=== PATIENT | female | born 1995 | race Caucasian/White ===

== ENCOUNTER 2016-07-06 14:45 | Emergency (ER) | payer OTHER ==
[~2016-07-06] VITALS: Ht 165.1 cm; Wt 60.8 kg
[2016-07-06 14:47] VITALS: BP 131/75
[2016-07-06] MEDS ORDERED: TYLE325C PO (14:59)
[2016-07-06] MEDS ORDERED: NAPR-26 PO (14:59)
[2016-07-06] MEDS ORDERED: HYDR-3713 PO (15:08)
[2016-07-06] MEDS ORDERED: AMOX500C PO (15:08)
[2016-07-06] MEDS ORDERED: ZOFR4TAB3 PO (15:08)
[2016-07-06] MEDS ORDERED: ONDANSETRON 4 MG ORAL DISINTEGRATING TAB (S0181) PO ONE (15:15)
== END 2016-07-06 15:16 | disposition home or self-care (01) ==
LOC: M ED 15:13
DX: K02.9 Dental caries, unspecified (principal); K52.1 Toxic gastroenteritis and colitis; Z79.899 Other long term (current) drug therapy; F17.210 Nicotine dependence, cigarettes, uncomplicated